=== PATIENT | female | born 1950 ===

== ENCOUNTER 2017-04-01 19:47 | Observation (INO) | payer MEDICARE, SELFPAY ==
--- NOTE | 2017-04-01 20:31 | ED PDOC ---
HPI: Headache Time Seen by Provider: 04/01/17 19:59 Chief Complaint (Nursing): Headache Chief Complaint (Provider): Headache/ Chest Pain History Per: Patient, Family History/Exam Limitations: no limitations Current Symptoms Are (Timing): Still Present Severity: Moderate Quality: Pressure Additional Complaint(s): Kimberly Ashton is a 66 y/o female, with a past medical history of Hypertension, presenting to the ER on 04/01/2017 with complaints of a headache and chest pain. Headache is rated at a 2/10. Chest pain, which is localized in the mid-sternum, is described as "pressure" and is rated as a 7/10. Patient denies SOB, dyspnea on exertion, fever, or chills. Past Medical History Reviewed: Historical Data, Nursing Documentation, Vital Signs Vital Signs: Last Vital Signs Temp 98.3 F 04/01/17 19:49 Pulse 80 04/01/17 19:49 Resp 16 04/01/17 19:49 BP 187/99 H 04/01/17 19:49 Pulse Ox 97 04/01/17 19:49 - Medical History PMH: HTN - Family History Family History: States: No Known Family Hx - Living Arrangements Living Arrangements: With Family - Social History Current smoker - smoking cessation education provided: No Alcohol: None Drugs: Denies - Home Medications Home Medications: Ambulatory Orders Medication Instructions Recorded Clopidogrel [Plavix] 75 mg PO DAILY 04/01/17 Hydrochlorothiazide [Microzide] 12.5 mg PO DAILY 04/01/17 Lisinopril [Zestril] 20 mg PO DAILY 04/01/17 Metoprolol Succinate [Metoprolol 200 mg PO DAILY 04/01/17 Succinate] Pravastatin Sodium 40 mg PO DAILY 04/01/17 - Allergies Allergies/Adverse Reactions: Allergies Allergy/AdvReac Type Severity Reaction Status Date / Time No Known Allergies Allergy Verified 04/01/17 19:53 Review of Systems ROS Statement: Except As Marked, All Systems Reviewed And Found Negative Constitutional: Negative for: Fever, Chills Cardiovascular: Positive for: Chest Pain Respiratory: Negative for: Shortness of Breath Neurological: Positive for: Headache Physical Exam - Reviewed Nursing Documentation Reviewed: Yes Vital Signs Reviewed: Yes - Physical Exam Appears: Positive for: Non-toxic, No Acute Distress Head Exam: Positive for: ATRAUMATIC Skin: Positive for: Normal Color Eye Exam: Positive for: Normal appearance Neck: Positive for: Normal, Painless ROM, Supple Cardiovascular/Chest: Positive for: Regular Rate, Rhythm. Negative for: Murmur Respiratory: Positive for: Normal Breath Sounds. Negative for: Respiratory Distress Gastrointestinal/Abdominal: Positive for: Normal Exam, Soft. Negative for: Tenderness Extremity: Positive for: Normal ROM. Negative for: Deformity Neurologic/Psych: Positive for: Alert, Oriented. Negative for: Motor/Sensory Deficits - Laboratory Results Result Diagrams: 04/01/17 21:00 04/01/17 21:00 - ECG ECG Rhythm: Positive for: Left Bundle Branch Block O2 Sat by Pulse Oximetry: 97 Pulse Ox Interpretation: Normal - Other Rad CXR X-Ray: Interpreted by Me, Viewed By Me X-Ray Interpretation: no acute finding Medical Decision Making Medical Decision Makin:59 Initial Impression- Headache and Chest Pain Initial Plan- * CT Head w/o contrast * EKG * CMP * CBC w. differential * CXR * Troponin * Sodium Chloride 1,000 ml IV * Re-evaluate 20:24 Case was immediately consulted with Dr. Lisa MD who reviewed EKG, LBBB noted. Initially no previous was available for comparison as name was entered in [employer] in error. Dr. Gonzalez spoke with truck service manager Dr. Torres who reviewed EKG and states no code heart needed at this time. Name was then corrected in [employer] and prior EKG was reviewed which does indicate a previous left bundle branch block. EKG from today does however demonstrate new onset ST depressions in Lead 2 and AVF, V5 and V6. Dr. Gonzalez discussed this finding with Dr. Torres who states there is no indication for code heart. PMD is Dr. Cisneros - case was d/w resident Dr. Scales who will admit patient. Patient is aware of and agrees with admission. Lab was called regarding troponin results, life underwriter noted that trop was cancelled by lab. I spoke with Juan Miguel in lab who said specimen was lost and test was cancelled. Lab did not call ED to alert anyone that a repeat tube needed to be drawn. Issue was reported to Charge nurse. Documented by Cherie Gonzalez, acting as a scribe for Suzie Kinsey PA-C All medical record entries made by the Scribe were at my direction and personally dictated by me. I have reviewed the chart and agree that the record accurately reflects my personal performance of the history, physical exam, medical decision making, and the department course for this patient. I have also personally directed, reviewed, and agree with the discharge instructions and disposition. Disposition - Clinical Impression Clinical Impression: Headache, Hypertension, Chest pain - Patient ED Disposition Is Patient to be Admitted: Yes - Disposition Disposition Time: 23:36 Condition: FAIR - Pt Status Changed To: Hospital Disposition Of: Observation - POA Present On Arrival: None Results - Vital Signs Recent Vital Signs: Last Vital Signs Temp 98.3 F 04/01/17 19:49 Pulse 80 04/01/17 19:49 Resp 16 04/01/17 19:49 BP 187/99 H 04/01/17 19:49 Pulse Ox 97 04/01/17 23:45 - Labs Result Diagrams: 04/01/17 21:00 04/01/17 21:00 Labs: Laboratory Results - last 24 hr 04/01/17 04/01/17 04/01/17 21:00 21:00 21:53 WBC 4.6 L RBC 4.45 Hgb 13.5 Hct 39.8 MCV 89.5 MCH 30.3 MCHC 33.9 RDW 12.9 Plt Count 323 MPV 7.8 Neut % (Auto) 31.9 L Lymph % (Auto) 46.6 H [place] % (Auto) 18.5 H Eos % (Auto) 2.2 Baso % (Auto) 0.8 Neut # 1.5 L Lymph # 2.2 [place] # 0.9 H Eos # 0.1 Baso # 0.0 Sodium 133 Potassium 3.9 Chloride 92 L Carbon Dioxide 31 H Anion Gap 14 BUN 18 H Creatinine 0.6 L Est GFR ( Amer) > 60 Est GFR (Non-Af Amer) > 60 Random Glucose 96 Calcium 9.9 Total Bilirubin 0.3 AST 60 H ALT 56 H Alkaline Phosphatase 86 Troponin I Cancelled Total Protein 8.2 Albumin 4.7 Globulin 3.5 Albumin/Globulin Ratio 1.3
[2017-04-01] MEDS ORDERED: Sodium Chloride 0.9% 1,000 ML IV STA (20:32)
[2017-04-01 21:05] LABS: BASO % 0.8 % (0.0-2.0); EOS # 0.1 K/uL (0.0-0.7); EOS % 2.2 % (0.0-4.0); HEMATOCRIT 39.8 % (34.0-47.0); LYMPH # 2.2 K/uL (1.0-4.3); LYMPH % 46.6 % (20.0-40.0); MEAN CELL VOLUME 89.5 fl (81.0-99.0); MEAN CORPUSCULAR HEMOGLOBIN 30.3 pg (27.0-31.0); MEAN CORPUSCULAR HGB CONC 33.9 g/dL (33.0-37.0); MEAN PLATELET VOLUME 7.8 fl (7.2-11.7); MONO # 0.9 K/uL (0.0-0.8); MONO % 18.5 % (0.0-10.0); NEUT # 1.5 K/uL (1.8-7.0); NEUT % 31.9 % (50.0-75.0); NRBC % 0.1 % (0.0-0.0); RED CELL DISTRIBUTION WIDTH 12.9 % (11.5-14.5); WHITE BLOOD COUNT 4.6 K/uL (4.8-10.8)
[2017-04-01 21:14] LABS: ALB/GLOB RATIO 1.3 (1.0-2.1); ALKALINE PHOSPHATASE 86 U/L (38-126); ALT/SGPT 56 U/L (9-52); AST/SGOT 60 U/L (14-36); BILIRUBIN,TOTAL 0.3 mg/dl (0.2-1.3); BLOOD UREA NITROGEN 18 mg/dl (7-17); CALCIUM 9.9 mg/dL (8.4-10.2); CARBON DIOXIDE 31 mmol/L (22-30); CHLORIDE 92 mmol/L (98-107); GFR AFRICAN-AMERICAN > 60; GLUCOSE,RANDOM 96 mg/dL (65-105); POTASSIUM 3.9 MMOL/L (3.6-5.0); SODIUM 133 mmol/l (132-148); TOTAL PROTEIN 8.2 G/DL (6.3-8.2)
--- NOTE | 2017-04-01 21:19 | CT ---
EXAM: CT Head Without Intravenous Contrast CLINICAL HISTORY: 66 years old, female; Pain; Headache; Tension; Additional info: Headache, HTN TECHNIQUE: Axial computed tomography images of the head/brain without intravenous contrast. This CT exam was performed using one or more of the following dose reduction techniques: automated exposure control, adjustment of the mA and/or kV according to patient size, and/or use of iterative reconstruction technique. Coronal and sagittal reformatted images were created and reviewed. COMPARISON: No relevant prior studies available. FINDINGS: Brain: Minimal atrophy. No intracranial hemorrhage. No mass. Few scattered subtle foci of decreased attenuation within periventricular/subcortical white matter. Chronic lacunar infarct within RIGHT basal ganglia. No definite edema. Ventricles: No hydrocephalus. Bones/joints: No acute fracture. Soft tissues: Small calcification or foreign body RIGHT periorbital soft tissues. Vasculature: Mild atherosclerotic disease of intracranial arteries. Sinuses: No acute sinusitis. Mastoid air cells: No mastoid effusion. Orbits: Unremarkable as visualized. IMPRESSION: 1. Nonspecific white matter changes. Acute infarction may be CT occult within first 24 hours. If a focal deficit persists, consider followup CT or MRI for further evaluation. 2. Incidental/non-acute findings are described above.
[2017-04-02] MEDS ORDERED: Dextrose 50% SYRINGE Inj (50 ml) IV PRN (00:41)
[2017-04-02] MEDS ORDERED: Glucagon Recombinant 1 mg Inj IM PRN (00:41)
--- NOTE | 2017-04-02 01:17 | US ---
EXAM: US Duplex Bilateral Lower Extremity Veins CLINICAL HISTORY: 66 years old, female; Pain; Leg, lower; Bilateral; Patient HX: Pt states calf pain; Additional info: Tia/headache, calf tenderness on exertion TECHNIQUE: Real-time ultrasound scan of the veins of the bilateral lower extremities with color Doppler flow, spectral waveform analysis and compression. COMPARISON: No relevant prior studies available. FINDINGS: Right deep veins: Normal color and spectral Doppler flow. Normal compressibility. No deep vein thrombosis from common femoral to popliteal vein. Right superficial veins: Unremarkable. Left deep veins: Normal color and spectral Doppler flow. Normal compressibility. No deep vein thrombosis from common femoral to popliteal vein. Left superficial veins: Unremarkable. Soft tissues: 2.3 x 1.4 x 2.2 cm septated hypoechoic lesion RIGHT popliteal fossa. IMPRESSION: 1. No evidence of DVT within the lower extremities. 2. RIGHT popliteal collection, nonspecific but possibly cyst. Consider MRI. 3. Incidental/non-acute findings are described above.
[2017-04-02 01:51] VITALS: O2SAT 95
--- NOTE | 2017-04-02 02:08 | CP.PCM.HP ---
History of Present Illness - History of Present Illness History of Present Illness: CC/HPI: 66 y.o female with PMHx of TIA presents to E.D. with complaint of Headache. Headache is localized to the left frontal area, onset since this morning, described as a dull throbbing, and rated as 5/10. Associated symptoms include weakness described as "heavines" in the let arm. Pt. also reports feeling lightheaded on some days but denies losing consciousness. Pt. reports had a similar headache 2 weeks ago which resolved spontaneously. Pt. reports was home all day and is not aware of what may have triggered the Headache. Also , patient does reports a 2-3 second interval of transient loss of vision in the left which resolved spontaneously that occurred 1 week ago. Pt. reports she got her niece to check her pressure at home and found to be 170/80 so decided to come to the E.R. with her son. While in the E.R. pt. also reports feeling a "tightness" in her chest located on the left side and rated 7/10 and not reproducible on palpation of left sternal wall. ROS: On ROS, pt. denies any trauma, fall, injury, nausea, vomiting, fever, chills, joint pain, paroxysmal nocturnal dyspnea, or chest pain with exertion. PMHx: TIA, HTN, HLD, NIDDM Type II PSHx: Hysterectomy TOB: denies ETOH: denies DRUG: denies Work: Daycare Home: Lives with son Allergies: NKDA Home Meds: Metoprolol Succinate 200mg Lisinopril 20mg HCTHZ 12.5mg Plavix 75mg ASA 81mg Pravachol 40mg Metformin ER 500mg (Pt. reports has not been taking Metformin for several months because has been using her friends glucometer at home and her sugars are fine so stopped taking Metformin without PMD being aware) PMD: Dr. Germaine Cisneros at [facility] E.D. Course: 1- CT Head w/o contrast- No acute hemorrhage 2- EKG with LBB and no significant change when compared to previous EKG 3- Sublingual Nitro .4mg x 1, ASA 162mg PO x 1 4- CBC, CMP 5- CXR- No acute findings noted 6- Venous Duplex- Negative bilaterally for DVT 7- N/S I.V. Fluid Bolus x1 E.D. Decision Making: Case was immediately consulted with Dr. Lisa MD who reviewed EKG, LBBB noted. Initially no previous was available for comparison as name was entered in [employer] in error. Dr. Gonzalez spoke with senior product consultant Dr. Torres who reviewed EKG and states no code heart needed at this time. Name was then corrected in [employer] and prior EKG was reviewed which does indicate a previous left bundle branch block. EKG from today does however demonstrate new onset ST depressions in Lead 2 and AVF, V5 and V6. Dr. Gonzalez discussed this finding with Dr. Torres who states there is no indication for code heart. Present on Admission - Present on Admission Any Indicators Present on Admission: Yes History of DVT/PE: No History of Uncontrolled Diabetes: Yes Urinary Catheter: No Decubitus Ulcer Present: No Review of Systems - Review of Systems Review of Systems: See HPI Past Patient History - Past Social History Smoking Status: Never Smoked Alcohol: None Drugs: Denies - CARDIAC Hx Cardiac Disorders: Yes - ENDOCRINE/METABOLIC Hx Endocrine Disorders: Yes - MUSCULOSKELETAL/RHEUMATOLOGICAL Hx Musculoskeletal Disorders: Yes - PSYCHIATRIC Hx Substance Use: No - SURGICAL HISTORY Hx Surgeries: Yes Hx Hysterectomy: Yes Other/Comment: FOOT SX Meds Allergies/Adverse Reactions: Allergies Allergy/AdvReac Type Severity Reaction Status Date / Time No Known Allergies Allergy Verified 04/01/17 19:53 Physical Exam - Constitutional Appears: Non-toxic, No Acute Distress Additional comments: Lying in bed with son and her cousin at bedside appears anxious but AAOx3 - Head Exam Head Exam: ATRAUMATIC, NORMOCEPHALIC - Eye Exam Eye Exam: EOMI Pupil Exam: PERRL - Neck Exam Neck exam: Positive for: Full Rom, Normal Inspection - Respiratory Exam Respiratory Exam: Clear to Auscultation Bilateral, NORMAL BREATHING PATTERN - Cardiovascular Exam Cardiovascular Exam: Tachycardia, +S1, +S2. absent: JVD, Systolic Murmur - GI/Abdominal Exam GI & Abdominal Exam: Soft, Tenderness - Extremities Exam Extremities exam: Positive for: normal capillary refill, pedal edema (+2 bilat below level of knees), pedal pulses present. Negative for: calf tenderness - Neurological Exam Neurological exam: Alert, CN II-XII Intact, Normal Gait, Oriented x3 - Psychiatric Exam Psychiatric exam: Anxious, Normal Affect Results - Vital Signs Recent Vital Signs: Last Vital Signs Temp 97.7 F 04/02/17 01:50 Pulse 63 04/02/17 01:50 Resp 18 04/02/17 01:50 BP 156/84 H 04/02/17 01:50 Pulse Ox 95 04/02/17 01:50 - Labs Result Diagrams: 04/01/17 21:00 04/01/17 21:00 Labs: Laboratory Results - last 24 hr 04/01/17 22:57 Troponin I < 0.0120 Assessment & Plan - Assessment and Plan (Free Text) Assessment: 66 y.o. female with PMHx of TIA here presents with acute onset Headache and elevated HTN 1-HEADACHE of unclear etiology most likely secondary to TIA- CT Head unremarkable for acute bleed does show chronic old lacunar infarct a- continue Plavix 75mg po daily b- Hold Aspirin 81mg for now c- F/U Carotid duplex and Echocardiogram ordered- consider as outpatient d- Consider repeat CT scan or MRI- consider as oupatient 2-Chest Pain- Resolved a- Cardiac Cath from 12/2015 WNL with an EF of 60% b- EKG compare to previous EKG - No significant acute changes noted, LBB present , mild ST depression c- Troponin x1 negative F/U 2nd Troponin d- F/U lipid panel 3-HTN a- continue with Metoprolol succinate ER 200mg PO daily b- continue with Lisinopril 20mg po daily c- continue with HCTHZ 12.5mg po daily 4-Diabetes Mellitus- Patient has not been taking her Metformin for several months a- Start metformin 500mg po BID b- Follow HbA1 c- Follow Fasting lipid panel d- Low dose sliding scale e- F/U HbA1c 5-DVT prophylaxis a- Lovenox 40mg sc 6- Diet a- Heart healthy with Moderate GDM
[2017-04-02] MEDS ORDERED: Sodium Chloride 0.9% 1,000 ML IV SCH (03:00)
[2017-04-02] MEDS: Insulin Regular 100 units/ml SC SCH ×2 (06:57→14:19)
[2017-04-02 08:51] LABS: BLOOD UREA NITROGEN 12 mg/dl (7-17); CALCIUM 9.2 mg/dL (8.4-10.2); CARBON DIOXIDE 29 mmol/L (22-30); CHLORIDE 98 mmol/L (98-107); CHOLESTEROL 138 mg/dL (0-199); GFR AFRICAN-AMERICAN > 60; GLUCOSE,RANDOM 104 mg/dL (65-105); POTASSIUM 4.1 MMOL/L (3.6-5.0); SODIUM 133 mmol/l (132-148)
[2017-04-02 09:00] LABS: HEMATOCRIT 36.1 % (34.0-47.0); MEAN CELL VOLUME 88.3 fl (81.0-99.0); MEAN CORPUSCULAR HEMOGLOBIN 30.4 pg (27.0-31.0); MEAN CORPUSCULAR HGB CONC 34.4 g/dL (33.0-37.0); RED CELL DISTRIBUTION WIDTH 12.8 % (11.5-14.5); WHITE BLOOD COUNT 2.5 K/uL (4.8-10.8)
[2017-04-02] MEDS ORDERED: Enoxaparin 40 mg Syringe SC SCH (09:00)
[2017-04-02] MEDS ORDERED: Metoprolol Succinate 100 mg XL Tab PO SCH (09:00)
[2017-04-02] MEDS ORDERED: Pravastatin Sodium 40 MG TAB PO SCH (09:00)
[2017-04-02 12:41] VITALS: BP 146/75; PULSE 67; RESP 18; TEMP 97.8
--- NOTE | 2017-04-02 13:38 | CP.PCM.DIS ---
Provider - Provider Date of Admission: 04/01/17 22:25 Attending physician: Analilia Martinez MD Time Spent in preparation of Discharge (in minutes): 30 Diagnosis - Discharge Diagnosis (1) Uncontrolled hypertension Status: Acute Priority: High Comment: Increased Hydrochlorothiazide dose from 12.5 mg to 25 mg daily. F/U with PMD as outpatient for BP monitoring and management. (2) Diabetes mellitus, type II Status: Chronic Comment: C/w outpatient monitoring and control by PMD (3) History of hyperlipidemia Status: Chronic Comment: c/w outpatient monitoring and management by PMD (4) Chest pain Status: Acute Comment: Resolved during admission. Troponin X 2 negative. ACS was r/o. Will continue monitoring as outpatient. ER precautions given Hospital Course - Lab Results Lab Results: Most Recent Lab Values WBC 2.5 K/uL (4.8-10.8) L 04/02/17 06:00 RBC 4.09 Mil/uL (3.80-5.20) 04/02/17 06:00 Hgb 12.4 g/dL (12.0-16.0) 04/02/17 06:00 Hct 36.1 % (34.0-47.0) 04/02/17 06:00 MCV 88.3 fl (81.0-99.0) 04/02/17 06:00 MCH 30.4 pg (27.0-31.0) 04/02/17 06:00 MCHC 34.4 g/dL (33.0-37.0) 04/02/17 06:00 RDW 12.8 % (11.5-14.5) 04/02/17 06:00 Plt Count 277 K/uL (130-400) 04/02/17 06:00 MPV 7.8 fl (7.2-11.7) 04/01/17 21:00 Neut % (Auto) 31.9 % (50.0-75.0) L 04/01/17 21:00 Lymph % (Auto) 46.6 % (20.0-40.0) H 04/01/17 21:00 [place] % (Auto) 18.5 % (0.0-10.0) H 04/01/17 21:00 Eos % (Auto) 2.2 % (0.0-4.0) 04/01/17 21:00 Baso % (Auto) 0.8 % (0.0-2.0) 04/01/17 21:00 Neut # 1.5 K/uL (1.8-7.0) L 04/01/17 21:00 Lymph # 2.2 K/uL (1.0-4.3) 04/01/17 21:00 [place] # 0.9 K/uL (0.0-0.8) H 04/01/17 21:00 Eos # 0.1 K/uL (0.0-0.7) 04/01/17 21:00 Baso # 0.0 K/uL (0.0-0.2) 04/01/17 21:00 Sodium 133 mmol/l (132-148) 04/02/17 06:45 Potassium 4.1 MMOL/L (3.6-5.0) 04/02/17 06:45 Chloride 98 mmol/L (98-107) 04/02/17 06:45 Carbon Dioxide 29 mmol/L (22-30) 04/02/17 06:45 Anion Gap 11 (10-20) 04/02/17 06:45 BUN 12 mg/dl (7-17) 04/02/17 06:45 Creatinine 0.5 mg/dL (0.7-1.2) L 04/02/17 06:45 Est GFR ( Amer) > 60 04/02/17 06:45 Est GFR (Non-Af Amer) > 60 04/02/17 06:45 POC Glucose (mg/dL) 148 mg/dL (65-110) H 04/02/17 11:34 Random Glucose 104 mg/dL (65-105) 04/02/17 06:45 Calcium 9.2 mg/dL (8.4-10.2) 04/02/17 06:45 Total Bilirubin 0.3 mg/dl (0.2-1.3) 04/01/17 21:00 AST 60 U/L (14-36) H 04/01/17 21:00 ALT 56 U/L (9-52) H 04/01/17 21:00 Alkaline Phosphatase 86 U/L (38-126) 04/01/17 21:00 Troponin I < 0.0120 ng/mL (0.00-0.120) 04/02/17 06:45 Total Protein 8.2 G/DL (6.3-8.2) 04/01/17 21:00 Albumin 4.7 g/dL (3.5-5.0) 04/01/17 21:00 Globulin 3.5 gm/dL (2.2-3.9) 04/01/17 21:00 Albumin/Globulin Ratio 1.3 (1.0-2.1) 04/01/17 21:00 Triglycerides 68 mg/DL (0-149) 04/02/17 06:45 Cholesterol 138 mg/dL (0-199) 04/02/17 06:45 LDL Cholesterol Direct 74 mg/dL (0-129) 04/02/17 06:45 HDL Cholesterol 48 MG/DL (30-70) 04/02/17 06:45 - Hospital Course Hospital Course: 66 y.o female with PMHx of HTN, NIDDM,Hyperlipidemia, h/o TIA presents to ED complaining of headaches, high BP taken at home, chest tightness admitted under observation to r/o ACS and TIA due to multiple risk factors. At ED EKG with LBBB showed no significant change when compared to previous EKG and CT Head w/o contrast showed nonspecific white matter changes. Ground Systems Engineer Dr. Torres was consulted while in ED. Troponin I x 2 were negative. During admission patient BP was managed with home medications, and Hydrochlorothiazide dose was increased from 12.5 mg to 25 mg daily. Today morning patient was seen and examined at bedside, and she was asymptomatic at the time of evaluation, with unremarkable cardiovascular, respiratory and neuro exam. Patient is stable to be discharged home in PO medications and will follow up with PMD, Dr. Demetrio Cisneros at [facility] as outpatient. Home medications: Aspirin 81 mg PO daily Plavix 75 mg PO daily Hydrachlorothiazide 25 mg PO daily Lisinopril 20 mg daily PO Metoprolol succinate 200 mgn daily PO Pravastatin 40 mg PO daily Metformin 500 mg PO BID - Date & Time of H&P Date of H&P: 04/02/17 Time of H&P: 02:05 Discharge Exam - Head Exam Head Exam: ATRAUMATIC, NORMOCEPHALIC - Eye Exam Eye Exam: Normal appearance - Respiratory Exam Respiratory Exam: Clear to PA & Lateral, NORMAL BREATHING PATTERN - Cardiovascular Exam Cardiovascular Exam: REGULAR RHYTHM, +S1, +S2 - GI/Abdominal Exam GI & Abdominal Exam: Normal Bowel Sounds, Soft. absent: Firm, Guarding, Tenderness - Extremities Exam Additional comments: Mild right leg extremity edema pitting 1 +. No calf tenderness. Kyree's sign negative bilateral. Peripheral pulses present and bilateral. - Neurological Exam Neurological exam: Alert, Oriented x3 - Psychiatric Exam Psychiatric exam: Normal Affect, Normal Mood - Skin Skin Exam: Dry, Intact, Normal Color Discharge Plan - Discharge Medications Prescriptions: Aspirin 81 mg PO DAILY #30 tab.chew Hydrochlorothiazide [Microzide] 25 mg PO DAILY #30 - Follow Up Plan Condition: GOOD Disposition: HOME/ ROUTINE Instructions: Hypertension (DC), Hypertension (GEN) Additional Instructions: F/U with PMD in 1 week. ER precautions given
--- NOTE | 2017-04-02 16:39 | RAD ---
HISTORY: cough COMPARISON: No prior. TECHNIQUE: Chest PA and lateral FINDINGS: LUNGS: No active pulmonary disease. PLEURA: No significant pleural effusion identified. No pneumothorax apparent. CARDIOVASCULAR: Heart size is upper limits of normal/ borderline enlarged. Mild calcifications seen along the aortic knob. Alvarez OSSEOUS STRUCTURES: Minor multilevel degenerative spondylosis of the thoracic spine VISUALIZED UPPER ABDOMEN: Normal. OTHER FINDINGS: None. IMPRESSION: No active disease.
--- NOTE | 2017-04-02 16:50 | US ---
PROCEDURE: Carotid vertebral duplex sonography HISTORY: Transient loss of vision/TIA COMPARISON: None available. TECHNIQUE: Grayscale, color Doppler and spectral Doppler assessment of the carotid system bilaterally. This includes common carotid, internal carotid arteries Vertebral artery assessment with respect to direction of flow (antegrade or retrograde) FINDINGS: RIGHT carotid system: Assessment of plaque: Heterogeneous plaque formation. Peak systolic ICA velocity: 85.3 cm/sec End-diastolic velocity: 25.9 cm/sec ICA/CCA ratio: 123 Vertebral artery flow: Antegrade LEFT carotid system: Assessment of plaque: Heterogeneous plaque formation. Peak systolic ICA velocity: 118.7 cm/sec End-diastolic velocity: 32.4 cm/sec ICA/CCA ratio: 1.8 Vertebral artery flow: Antegrade IMPRESSION: Right ICA degree of stenosis: Less than 50% Left ICA degree of stenosis: Less than 50% Reference Internal Carotid Artery (ICA) Peak Systolic Velocity (PSV) for above: 1. Less than 50% stenosis less than 125 cm/s peak systolic velocity 2. 50-69% stenosis 125-230cm/s peak systolic velocity 3. Greater than 70% but less than near occlusion greater than 230 cm/s peak systolic velocity
== END 2017-04-02 14:23 | disposition home or self-care (01) ==
LOC: H.ER 19:47 → H.ERHOLD 22:25 → H.TEL 04-02 01:42
PROVIDERS: ADMIT Family Medicine Geriatric Medicine; ATTEND Family Medicine Geriatric Medicine
DX: R51 Headache (principal); I10 Essential (primary) hypertension; Z86.73 Personal history of transient ischemic attack (TIA), and cerebral infarction without residual deficits; E11.9 Type 2 diabetes mellitus without complications; E78.5 Hyperlipidemia, unspecified
CPT/HCPCS: 36415; 70450; 71020; 80048; 80053; 80061; 82948; 83036; 84484; 85025; 85027; 93880; 93970; 99285; G0378; J1650; J7040